=== PATIENT | male | born 1980 | race Caucasian/White ===

== ENCOUNTER 2016-12-18 07:15 | Emergency (ER) | payer OTHER ==
[~2016-12-18] VITALS: Ht 172.7 cm; Wt 106.4 kg
[~2016-12-18 07:15] MED LIST: AMOXICILLIN875 MG PO; ATARAX 25MG25 MG/TAB PO; ATIVAN 0.50.5 MG/TAB PO; ATIVAN 1MG T1 MG/TAB PO; B 12; B COMPLEX & B121 TAB PO; BENADRYL50 MG; DICYCLOMINE10 MG PO; GAVISCON500 MG PO; GENTAMICIN EYE D5 ML OD; LORTAB 5/500 501 TAB PO; LYRICA 25MG CAP25 MG PO; MEDROL 4MG DOSPA4 MG PO; MIRALAX PA17 GM/Dose PO; MS CONTIN 115 MG/TAB PO; MYLICON 8080 MG/TAB. PO; OMEPRAZOLE10 MG PO; PAMELOR50 MG PO; PENTASA500 MG PO; PERCOCET 325 MG1 TA2 PO; PREDNISONE20 MG PO; PRIL40 PO; PRILOSEC 20MG20 MG PO; PROTONIX 40MG T40 MG PO; PROVENTIL4 MG PO; PROZAC40 MG PO; REGLAN 5MG T5 MG/TAB PO; ROXICODONE 55 MG/TAB PO; SINEQUAN 1010 MG/CAP PO; SINGULAIR 110 MG/TAB PO; SPORANOX100 MG PO; SUPPOSITORY; TRIAMCINOLONE0.11 TP; ULTRAM 50MG TAB50 MG; ULTRAM 50MG TAB50 MG PO; ULTRAM ER100 MG PO; VITAMIN B COMPL1 T16 PO; ZANTAC 150MG T150 MG PO; ZOFRAN 4MG T4 MG/TAB PO; ZOFRAN ODT8 MG PO; ZOVIRAX800 MG PO; ZYRTEC 10MG10 MG PO; [UNRECOGNIZED DRUG - REMARK]
[2016-12-18 07:18] VITALS: TEMP 97.8
[2016-12-18 08:15] LABS: BASO # 0.1 (0.0-0.2); BASO % 0.4 % (0.0-2.0); EOS # 0.1 (0.0-0.7); EOS % 0.8 % (0-4.0); GRAN # 10.2 (1.4-6.5); GRAN % 85.4 % (42.2-75.2); HEMATOCRIT 47.8 % (42.0-52.0); HEMOGLOBIN 16.3 g/dl (13.5-18.0); LYMPH # 1.2 (1.2-3.4); LYMPH % 9.6 % (20.0-51.0); MEAN CELL VOLUME 88 fl (80.0-100.0); MEAN CORPUSCULAR HEMOGLOBIN 30 pg (27.0-31.0); MEAN CORPUSCULAR HGB CONC 34 g/dl (33.0-37.0); MEAN PLATELET VOLUME 10.6 fl (7.4-10.4); MONO # 0.4 (0.1-0.6); MONO % 3.4 % (1.7-9.3); PLATELET COUNT 286 K/mm3 (130-400); RED BLOOD COUNT 5.46 M/mm3 (4.20-5.60); REDCELL DISTRIBUTION WIDTH-CV 12.6 % (11.5-14.5)
[2016-12-18] MEDS ORDERED: SINEQUAN 1010 MG/CAP PO (08:20)
[2016-12-18] MEDS ORDERED: COREG12.5 MG PO (08:22)
[2016-12-18] MEDS ORDERED: ENTOCORT EC3 MG PO (08:22)
[2016-12-18] MEDS ORDERED: PROMETHAZINE12.5 M5 PO (08:22)
[2016-12-18 08:55] LABS: ADJUSTED CALCIUM 9.1 mg/dL (8.4-10.2); ALBUMIN 4.3 gm/dL (3.5-5.0); BILIRUBIN,TOTAL 1.8 mg/dL (0.0-1.0); CALCIUM 9.3 mg/dL (8.4-10.2); CREATININE, serum 1.3 mg/dL (0.66-1.25); POTASSIUM 3.4 mmol/L (3.4-5.0); TOTAL PROTEIN 7.8 gm/dL (6.4-8.2)
[2016-12-18 08:58] LABS: PH 5 (5-8); SQUAMOUS EPITHELIAL None Seen /hpf; URINE APPEARANCE Clear; URINE BACTERIA None Seen /hpf; URINE BILIRUBIN Negative (NEGATIVE); URINE BLOOD Negative (NEGATIVE); URINE COLOR Yellow; URINE GLUCOSE Negative (NEGATIVE); URINE KETONE Negative (NEGATIVE); URINE RBC 0-2 /hpf; URINE UROBILINOGEN Negative (NEGATIVE); URINE WBC 0-2 /hpf
[2016-12-18 10:55] VITALS: BP 104/67; PULSE 103
== END 2016-12-18 10:55 | disposition home or self-care (01) ==
LOC: COL.ER 07:15
PROVIDERS: Family Medicine
DX: E86.0 Dehydration (principal); K52.9 Noninfective gastroenteritis and colitis, unspecified; R10.32 Left lower quadrant pain
CPT/HCPCS: J1100; J1170; J2405; J7030; Q9967

== ENCOUNTER → 2016-12-25 | Outpatient (CLI) | payer OTHER ==
[~2016-12-25] MED LIST changes: +COREG12.5 MG PO; +ENTOCORT EC3 MG PO; +PROMETHAZINE12.5 M5 PO
== END ==
LOC: COL.LAB 17:20
DX: R19.8 Other specified symptoms and signs involving the digestive system and abdomen (principal)

== ENCOUNTER → 2017-03-14 | Outpatient (CLI) | payer MEDICARE, OTHER | LOC: COL.RAD 12:15 | DX: K59.09 Other constipation (principal) ==

== ENCOUNTER → 2017-10-02 | Outpatient (CLI) | payer MEDICARE, OTHER ==
[2017-10-02 16:35] LABS: VENOUS BLOOD GAS BE 2.4 (-4-4); VENOUS BLOOD GAS SAO2 48.7 % (60-80); VENOUS BLOOD GAS SITE VENIPUNCTURE
== END ==
LOC: COL.LAB 15:47
PROVIDERS: Family Medicine
DX: R23.0 Cyanosis (principal)

== ENCOUNTER → 2017-12-28 | Outpatient (CLI) | payer MEDICARE, OTHER | LOC: SUN.DIA 09:12 | DX: E53.8 Deficiency of other specified B group vitamins (principal) ==

== ENCOUNTER → 2018-05-30 | Outpatient (CLI) | payer MEDICARE, OTHER | LOC: COL.LAB 15:31 | DX: E53.8 Deficiency of other specified B group vitamins (principal) ==

== ENCOUNTER → 2018-06-18 | Outpatient (CLI) | payer MEDICARE, OTHER | LOC: COL.RAD 09:28 | DX: J34.89 Other specified disorders of nose and nasal sinuses (principal); J34.1 Cyst and mucocele of nose and nasal sinus ==

== ENCOUNTER 2018-09-06 10:00 | Outpatient (RCR) | payer MEDICARE, OTHER, MEDICAID | END 2018-09-22 | disposition home or self-care (01) | LOC: WSPT | DX: R29.898 Other symptoms and signs involving the musculoskeletal system (principal) | CPT/HCPCS: G8978-GP; G8979-GP ==

== ENCOUNTER → 2019-02-28 | Outpatient (CLI) | payer MEDICARE, OTHER ==
[2019-02-28 11:55] LABS: ALBUMIN 4.2 gm/dL (3.5-5.0); BILIRUBIN,TOTAL 1.6 mg/dL (0.0-1.0); CALCIUM 9.4 mg/dL (8.4-10.2); CREATININE, serum 1.33 (0.66-1.25); POTASSIUM 4.4 mmol/L (3.4-5.0); TOTAL PROTEIN 7.6 gm/dL (6.4-8.2)
== END ==
LOC: COL.LAB 11:19
DX: R17 Unspecified jaundice (principal); R74.8 Abnormal levels of other serum enzymes; R79.89 Other specified abnormal findings of blood chemistry

== ENCOUNTER → 2019-04-04 | Outpatient (CLI) | payer MEDICARE, OTHER | LOC: COL.RAD 08:30 | DX: K50.00 Crohn's disease of small intestine without complications (principal) | CPT/HCPCS: A9585 ==

== ENCOUNTER 2020-07-02 13:00 | Outpatient (RCR) | payer MEDICARE, OTHER | END 2020-07-13 14:48 | disposition home or self-care (01) | LOC: WSC 13:00 | DX: M79.10 Myalgia, unspecified site (principal) ==

== ENCOUNTER 2020-09-15 09:36 | Emergency (ER) | payer MEDICARE, OTHER ==
[~2020-09-15] VITALS: Ht 172.7 cm; Wt 100.0 kg
[2020-09-15 09:45] VITALS: TEMP 97.9
[2020-09-15] MEDS ORDERED: TREXALL5 MG PO (11:02)
[2020-09-15] MEDS ORDERED: ZOFRAN 4MG T4 MG/TAB PO (11:03)
[2020-09-15] MEDS ORDERED: FOLIC ACID 11 MG/TA1 PO (11:03)
[2020-09-15] MEDS ORDERED: FLONASE NASAL S16 GM NS (11:04)
[2020-09-15] MEDS ORDERED: SINGULAIR 110 MG/TAB PO (11:04)
[2020-09-15 11:17] LABS: ALBUMIN 3.9 gm/dL (3.5-5.0); BILIRUBIN,TOTAL 1.6 mg/dL (0.0-1.0); CALCIUM 8.5 mg/dL (8.4-10.2); CREATININE, serum 1.33 (0.66-1.25); POTASSIUM 4.8 mmol/L (3.4-5.0)
[2020-09-15 11:21] LABS: BASO % 0.4 % (0.0-2.0); EOS # 0.1 (0.0-0.7); EOS % 1.7 % (0-4.0); GRAN # 5.1 (1.4-6.5); HEMATOCRIT 42.5 % (42.0-52.0); HEMOGLOBIN 14.2 g/dl (13.5-18.0); LYMPH # 1.2 (1.2-3.4); LYMPH % 17.1 % (20.0-51.0); MEAN CELL VOLUME 89 fl (80.0-100.0); MEAN CORPUSCULAR HEMOGLOBIN 30 pg (27.0-31.0); MEAN CORPUSCULAR HGB CONC 33 g/dl (33.0-37.0); MEAN PLATELET VOLUME 10.8 fl (7.4-10.4); MONO # 0.5 (0.1-0.6); MONO % 6.5 % (1.7-9.3); PLATELET COUNT 260 K/mm3 (130-400); RED BLOOD COUNT 4.78 M/mm3 (4.20-5.60); REDCELL DISTRIBUTION WIDTH-CV 13.6 % (11.5-14.5)
[2020-09-15 12:12] LABS: COLLECTION METHOD CLEAN CATCH
[2020-09-15 12:17] LABS: PH 8 (5-8); SQUAMOUS EPITHELIAL None Seen /hpf; URINE APPEARANCE Clear; URINE BACTERIA None Seen /hpf; URINE BILIRUBIN Negative (NEGATIVE); URINE BLOOD Negative (NEGATIVE); URINE COLOR Straw; URINE GLUCOSE Negative (NEGATIVE); URINE KETONE Negative (NEGATIVE); URINE LEUKOCYTE ESTERASE Negative (NEGATIVE); URINE NITRATE Negative (NEGATIVE); URINE PROTEIN(semi-quant) Negative (NEGATIVE); URINE RBC None Seen /hpf; URINE UROBILINOGEN Negative (NEGATIVE)
[2020-09-15 13:35] VITALS: BP 105/67; PULSE 85
[2020-09-15] MEDS ORDERED: NORCO 325 MG-51 TAB PO (13:37)
== END 2020-09-15 14:30 | disposition home or self-care (01) ==
LOC: COL.ER 09:36
PROVIDERS: Emergency Medicine
DX: G89.18 Other acute postprocedural pain (principal); Z88.2 Allergy status to sulfonamides; Z88.8 Allergy status to other drugs, medicaments and biological substances
CPT/HCPCS: J1170; J7030; Q9967